=== PATIENT | female | born 1995 | race Caucasian/White ===

== ENCOUNTER 2018-07-26 02:46 | Emergency (ER) | payer OTHER ==
[2018-07-26] MEDS ORDERED: KETOROLAC 15 MG/1 ML SDV ONE (03:00)
[2018-07-26] MEDS ORDERED: KETOROLAC 15 MG/1 ML SDV IVP ONE (03:00)
[2018-07-26] MEDS ORDERED: NS 1,000 ML IV ONE (03:00)
--- NOTE | 2018-07-26 03:02 | EDPHY ---
H & P Stated Complaint: Abd pain, sweating, chills, Time Seen by Provider: 07/26/18 02:53 HPI/ROS: Chief Complaint: Abdominal pain HPI: 23-year-old woman began having upper abdominal pain about 6 or 7 hr ago. It is in the upper abdomen. It is constant. About a 7/10. It is a dull pain. No nausea or vomiting. No diarrhea or constipation. No fevers or chills. There are no aggravating or alleviating factors. No chest pain or shortness of breath. No recent illness. Last menstrual. Is now. She has an IUD. She is not sexually active. No history of surgeries. ROS: 10 systems were reviewed and were negative except those elements noted in the HPI. PMH: Denies Social History: No smoking, rare alcohol, no recreational drug use Family History: non-contributory Physical Exam: Gen: Awake, Alert, No Distress HEENT: Nose: no rhinorrhea Eyes: PERRLA, EOMI Mouth: Moist mucosa Neck: Supple, no JVD Chest: nontender, lungs clear to auscultation Heart: S1, S2 normal, no murmur Abd: Soft, mild epigastric tenderness, no guarding Back: no CVA tenderness, no midline tenderness Ext: no edema, non-tender Skin: no rash Neuro: CN II-XII intact, Sensation grossly intact, Strength 5/5 in bilateral upper and lower extremities - Personal History LMP (Females 10-55): IUD In Place Current Tetanus Diphtheria and Acellular Pertussis (TDAP): Yes - Medical/Surgical History Hx Asthma: No Hx Chronic Respiratory Disease: No Hx Diabetes: No Hx Cardiac Disease: No Hx Renal Disease: No Hx Cirrhosis: No Hx Alcoholism: No Hx HIV/AIDS: No Hx Splenectomy or Spleen Trauma: No Other PMH: Denies - Social History Smoking Status: Never smoked Constitutional: Initial Vital Signs Temperature (C) 36.5 C 07/26/18 02:49 Heart Rate 72 07/26/18 02:49 Respiratory Rate 19 07/26/18 02:49 Blood Pressure 147/102 H 07/26/18 02:49 O2 Sat (%) 96 07/26/18 02:49 O2 Delivery Mode Room Air Allergies/Adverse Reactions: No Known Allergies Allergy (Unverified 07/26/18 02:52) Home Medications: Medication Instructions Recorded Ondansetron Odt [Zofran Odt 4 mg 4 mg PO Q4 PRN #10 tab 07/26/18 (*)] Medical Decision Making ED Course/Re-evaluation: 23-year-old woman with nausea vomiting and diarrhea some epigastric pain. Laboratory evaluations are unremarkable. She is improved after IV hydration, antiemetics and some famotidine. She is tolerating p.o.. Abdomen is soft and benign. Will discharge with supportive therapy and hydration, follow up with primary care. - Data Points Laboratory Results: Laboratory Results 07/26/18 03:42 07/26/18 03:10 07/26/18 07/26/18 07/26/18 03:42 03:10 03:10 WBC 8.71 10^3/uL 10^3/uL (3.80-9.50) RBC 4.50 10^6/uL 10^6/uL (4.18-5.33) Hgb 14.0 g/dL g/dL (12.6-16.3) Hct 42.0 % % (38.0-47.0) MCV 93.3 fL fL (81.5-99.8) MCH 31.1 pg pg (27.9-34.1) MCHC 33.3 g/dL g/dL (32.4-36.7) RDW 13.2 % % (11.5-15.2) Plt Count 290 10^3/uL 10^3/uL (150-400) MPV 9.9 fL fL (8.7-11.7) Neut % (Auto) 53.7 % % (39.3-74.2) Lymph % (Auto) 33.9 % % (15.0-45.0) [place] % (Auto) 9.5 % % (4.5-13.0) Eos % (Auto) 2.1 % % (0.6-7.6) Baso % (Auto) 0.6 % % (0.3-1.7) Nucleat RBC Rel Count 0.0 % % (0.0-0.2) Absolute Neuts (auto) 4.68 10^3/uL 10^3/uL (1.70-6.50) Absolute Lymphs (auto) 2.95 10^3/uL 10^3/uL (1.00-3.00) Absolute Monos (auto) 0.83 10^3/uL H 10^3/uL (0.30-0.80) Absolute Eos (auto) 0.18 10^3/uL 10^3/uL (0.03-0.40) Absolute Basos (auto) 0.05 10^3/uL 10^3/uL (0.02-0.10) Absolute Nucleated RBC 0.00 10^3/uL 10^3/uL (0-0.01) Immature Gran % 0.2 % % (0.0-1.1) Immature Gran # 0.02 10^3/uL 10^3/uL (0.00-0.10) Sodium 140 mEq/L mEq/L (135-145) Potassium 4.4 mEq/L mEq/L (3.5-5.2) Chloride 108 mEq/L mEq/L (97-110) Carbon Dioxide 25 mEq/l mEq/l (22-31) Anion Gap 7 mEq/L mEq/L (6-14) BUN 15 mg/dL mg/dL (7-23) Creatinine 0.7 mg/dL mg/dL (0.6-1.0) Estimated GFR > 60 Glucose 91 mg/dL mg/dL (70-100) Calcium 9.5 mg/dL mg/dL (8.5-10.4) Total Bilirubin 0.9 mg/dL mg/dL (0.1-1.4) AST 24 IU/L IU/L (14-46) ALT 31 IU/L IU/L (9-52) Alkaline Phosphatase 62 IU/L IU/L (38-126) Total Protein 7.0 g/dL g/dL (6.3-8.2) Albumin 4.4 g/dL g/dL (3.5-5.0) Lipase 111 IU/L IU/L (23-300) Beta HCG, Qual NEGATIVE Medications Given: Discontinued Medications Sodium Chloride (Ns) 1,000 mls @ 0 mls/hr IV ONCE ONE; Wide Open PRN Reason: Protocol Stop: 07/26/18 03:01 Last Admin: 07/26/18 03:07 Dose: 1,000 mls Famotidine/Sodium Chloride (Pepcid 20 Mg (Premix)) 50 mls @ 200 mls/hr IV EDNOW ONE Stop: 07/26/18 04:42 Last Admin: 07/26/18 04:34 Dose: 50 mls Ketorolac Tromethamine (Toradol) 15 mg IVP EDNOW ONE Stop: 07/26/18 03:01 Last Admin: 07/26/18 03:07 Dose: 15 mg Departure - Departure Disposition: Home, Routine, Self-Care Clinical Impression: Acute gastroenteritis Condition: Good Instructions: Gastroenteritis (ED), Acute Nausea and Vomiting (ED) Additional Instructions: You may take Zofran as needed for nausea vomiting. Make sure to drink plenty of fluids, Pedialyte is the best for hydration when you are sick. Avoid fatty foods, caffeine, alcohol and dairy. May take famotidine [id number] for indigestion or reflux symptoms. Follow up with primary care physician in 3-4 days if symptoms are not improving. Return to the emergency department for increasing abdominal pain, uncontrolled nausea vomiting, fainting, or any other concerns. Referrals: NONE *PRIMARY CARE P,. [Primary Care Provider] - As per Instructions Prescriptions: Ondansetron Odt [Zofran Odt 4 mg (*)] 4 mg PO Q4 PRN #10 tab PRN Reason: nausea
[2018-07-26 03:48] LABS: PLATELET COUNT 290 10^3/uL (150-400)
[2018-07-26] MEDS ORDERED: FAMOTIDINE 20 MG/NACL 50 ML IV ONE (04:28)
[2018-07-26] MEDS ORDERED: FAMOTIDINE 20 MG/2 ML SDV ONE (04:29)
[2018-07-26 05:56] VITALS: BP 129/88
== END 2018-07-26 05:55 | disposition home or self-care (01) ==
DX: K52.9 Noninfective gastroenteritis and colitis, unspecified (principal); E86.9 Volume depletion, unspecified
CPT/HCPCS: 96374; J1885